=== PATIENT | male | born 1955 | race Caucasian/White ===

== ENCOUNTER 2020-11-20 05:34 | Outpatient (CLI) | payer OTHER ==
[~2020-11-20] VITALS: Ht 177.8 cm; Wt 104.4 kg
[~2020-11-20 05:34] MED LIST: BENACAR; DOXA1TAB2 PO; ESCT10T; FEXO180T84 PO; FLUT9.9S NS; VALS80TA31 PO
[2020-11-21] MEDS ORDERED: METF-397 PO (10:51)
[2020-11-21] MEDS ORDERED: TELM80TA8 PO (10:51)
== END 2020-11-21 13:03 | disposition home or self-care (01) ==
LOC: PREOP 05:34 → EDSTATUS 08:45 → PREOP 11-21 13:03
PROVIDERS: ATTEND Surgery
DX: Z01.818 Encounter for other preprocedural examination (principal)

== ENCOUNTER 2020-11-27 09:43 | Day surgery (SDC) | payer MEDICARE, OTHER ==
--- NOTE | 2020-11-26 09:43 | HISTORY AND PHYSICAL ---
DATE OF SERVICE: PROCEDURE DATE: 11/27/2020. ATTENDING PHYSICIAN: Radha Tracey DO HISTORY OF PRESENT ILLNESS: The patient is a 65-year-old male who was referred over to us in need of a screening colonoscopy. He reports his last colonoscopy was 5 years ago and reports at that time, he did have a hepatic flexure polyp, which was removed and consistent with a tubular adenoma. He was also found to have a stage II external and internal hemorrhoids as well as a mild sigmoid diverticulosis. He reports that since that time, he has done well; however, about 3 weeks ago, he presented to his primary care physician with what he thought was an episode of diverticulitis; however, reports that he did have some blood work performed and reports this was normal. He reports he was not started on any antibiotics and then his pain did improve. He denies any blood in his stool as well as no family history of any colon cancer. He denies any significant issues with any diarrhea or constipation. PAST MEDICAL HISTORY: Hypertension, BPH, type 2 diabetes, degenerative joint disease of the knees, diverticulosis. PAST SURGICAL HISTORY: Bilateral total knee replacement in 2000. Laparoscopic right inguinal hernia repair 2015. Appendectomy in 1968. Left knee ACL repair in 1969. Right knee ACL repair in 1967. Hernia repair as a child in 1955. ALLERGIES: No known drug allergies. MEDICATIONS: Telmisartan 80 mg, doxazosin 1 mg, metformin 500 mg, Flonase. SOCIAL HISTORY: Previous for tobacco smoke at 2 packs per day for 21 years, quit in 1993. Rare for alcohol. FAMILY HISTORY: Mother had diabetes, uterine cancer, myocardial infarction. Father had hypertension, stroke. REVIEW OF SYSTEMS: Well-nourished male in no acute distress. He is not experiencing any shortness of breath or difficulty breathing. No chest pain, palpitations or diaphoresis. No nausea, vomiting or abdominal pain. No diarrhea or constipation. No red blood per rectum. No dark tarry stools. No fever or chills. No recent inadvertent weight loss. All other review of systems are negative. PHYSICAL EXAMINATION: CHEST: Clear. Good breath sounds bilaterally. HEART: Regular, no murmurs. EXTREMITIES: No lower extremity edema. Negative Homans sign. HEENT: No scleral icterus. NECK: No cervical lymphadenopathy. ABDOMEN: Soft, nontender, nondistended. SKIN: Warm, dry and pink. NEUROLOGIC: Awake, alert and oriented x3. ASSESSMENT AND PLAN: A 65-year-old male with a history of colonic polyps, who is in need of a screening colonoscopy. The risks and benefits of the procedure as well as the procedure and home care instructions were explained to the patient. At this time, we will proceed with scheduling the patient for a screening colonoscopy. Job ID: [id number] DocumentID: [id number] Dictated Date: 11/26/2020 09:02:41 Event Lighting Specialist Date: 11/26/2020 09:43:09 Dictated By: TRISTAN EVANS APRN
[~2020-11-27] VITALS: Ht 177.8 cm; Wt 104.4 kg
[2020-11-27] VITALS (13 sets, daily range): BP systolic 121–147; BP diastolic 64–89
[~2020-11-27 09:43] MED LIST changes: +METF-397 PO; +TELM80TA8 PO
[2020-11-27] MEDS ORDERED: NS IV 500 ML 500 ML ONE (09:59)
--- NOTE | 2020-11-27 10:19 | Progress Note-Pre Operative ---
Pre-Operative Progress Note H&P Reviewed The H&P was reviewed, patient examined and no changes noted. Date Seen by Provider: Nov 27, 2020 Time Seen by Provider: 10:00 Date H&P Reviewed: Nov 27, 2020 Time H&P Reviewed: 10:00 Pre-Operative Diagnosis: hx diverticulitis IVANNA DAMIAN MD Nov 27, 2020 10:19
--- NOTE | 2020-11-27 10:19 | Conscious Sedation/ASA ---
Conscious Sedation Pre-Proced Time 10:00 ASA Score 2 For ASA 3 and 4: Consider anesthesia and medical clearance. Also, for patients with a history of failed moderate sedation consider anesthesia. Airway Lungs Heart ASA score ASA 1: a normal healthy patient ASA 2: a patient with a mild systemic disease (mid diabetes, controlled hypertension, obesity ASA 3: a patient with a severe systemic disease that limits activity (angina, COPD, prior Myocardial infarction) ASA 4: a patient with an incapacitating disease that is a constant threat to life (CHF, renal failure) ASA 5: a moribund patient not expected to survive 24 hrs. (ruptured aneurysm) ASA 6: a declared brain- patient whose organs are being harvested. For emergent operations, add the letter E after the classification Mallampati Classification Grade 2 Sedation Plan Analgesia, Amnesia, Plan communicated to team members, Discussed options with patient/fam, Discussed risks with patient/fam The patient is an appropriate candidate to undergo the planned procedure, sedation, and anesthesia. The patient immediately re-assessed prior to indication. IVANNA DAMIAN MD Nov 27, 2020 10:19
--- NOTE | 2020-11-27 10:20 | Discharge Inst-Surgical ---
D/C Lap Instructions-NATI Follow Up Appt in 2 weeks Activity as tolerated High Fiber Diet 25g or more per day Avoid Alcohol, Caffeine, Spicy [place] and Acid foods. Drink 64 fluid oz or more of fluids per day. Symptoms to Report: Fever over 101 degree F, Nausea/Vomiting If any problems/questions: Contact your physician or go to Emergency Room IVANNA DAMIAN MD Nov 27, 2020 10:20
[2020-11-27] MEDS ORDERED: morphine INJ 10 MG/ML 1ML (SYR OR VIAL) IVP PRN ×2 (10:30)
[2020-11-27] MEDS ORDERED: ACETAMINOPHEN 325 MG TABLET PO PRN (10:30)
[2020-11-27] MEDS ORDERED: LIDOCAINE JELLY 2% 6 ML SYRINGE MM PRN (10:30)
[2020-11-27] MEDS ORDERED: fentaNYL INJ 100 MCG/2 ML AMP IVP ONE (10:30)
[2020-11-27] MEDS ORDERED: ONDANSETRON 4 MG/2 ML (SDV) Z0FRAN IVP PRN (10:30)
[2020-11-27] MEDS ORDERED: NS IV 500 ML 500 ML IV PRN (10:30)
[2020-11-27] MEDS ORDERED: MIDAZOLAM 5 MG/5 ML (VERSED) VIAL IV ONE (10:30)
[2020-11-27] MEDS ORDERED: HYDROcodone/APAP 5 MG/325 MG (LORTAB) TAB PO PRN (10:30)
[2020-11-27] MEDS ORDERED: LIDOCAINE JELLY 2% 6 ML SYRINGE TOP ONE (10:30)
[2020-11-27] MEDS ORDERED: fentaNYL INJ 100 MCG/2 ML AMP ONE ×2 (11:26→11:31)
[2020-11-27] MEDS ORDERED: LIDOCAINE JELLY 2% 6 ML SYRINGE ONE (11:26)
[2020-11-27] MEDS ORDERED: MIDAZOLAM 5 MG/5 ML (VERSED) VIAL ONE ×2 (11:27→11:31)
--- NOTE | 2020-11-27 12:25 | Progress Note-Post Operative ---
Post-Operative Progess Note Surgeon (s)/Daylight Driller (s) Surgeon IVANNA DAMIAN MD Daylight Driller: none Pre-Operative Diagnosis hx diverticulitis Post-Operative Diagnosis chronic stage 2 ext and int hemorrhoids, moderate-severe sigmoid diverticulosis, small cecal polyp. Procedure & Operative Findings Date of Procedure 11/27/20 Procedure Performed/Findings colonoscopy with polypectomy with forceps. Anesthesia Type cs Estimated Blood Loss Estimated blood loss (mL): minimal Specimens/Packing Specimens Removed cecal polyp IVANNA DAMIAN MD Nov 27, 2020 12:24
--- NOTE | 2020-11-27 15:58 | OPERATIVE REPORT ---
DATE OF SERVICE: 11/27/2020 ATTENDING PRIMARY CARE PHYSICIAN: Radha Tracey DO PREOPERATIVE DIAGNOSIS: Screening colonoscopy with history of colon polyps as well as a history of diverticulitis. POSTOPERATIVE DIAGNOSES: Chronic stage II external and internal hemorrhoids, [id number] sigmoid diverticulosis with no active inflammation. Small polyp of the cecum, 2 mm in size. PROCEDURES: Colonoscopy with biopsy. SURGEON: Ivanna Damian MD. ANESTHESIA: Conscious sedation. ESTIMATED BLOOD LOSS: Minimal. FINDINGS: Same as postoperative diagnoses. DISPOSITION: The patient tolerated the procedure well. INDICATIONS: The patient is a 65-year-old male in need of a screening colonoscopy. His last colonoscopy was 5 years ago and at that time, he was found to have a polyp at the hepatic flexure, which was removed and found to be consistent with a tubular adenoma. He was also found to have sigmoid diverticulosis. Approximately a month ago, he presented to his physician with left lower quadrant abdominal pain and was diagnosed with diverticulitis and treated with oral antibiotics, which did improve. DESCRIPTION OF PROCEDURE: The patient was brought to the endoscopy suite, laid in the left lateral decubitus position. After adequate IV pain and sedative medications and conscious sedation anesthesia, a digital rectal examination was performed, which revealed chronic stage II external and internal hemorrhoids, not actively edematous nor inflamed and no bleeding. Normal sphincter tone was felt and there were no palpable masses. Prostate gland was palpable and appeared normal. The endoscope was then intubated and anus and rectum gently insufflated. The endoscope was then advanced through the valves of Forrester of the rectum with no polyps or any neoplasms identified. Through the sigmoid colon, a moderate to severe sigmoid diverticulosis identified. There were no mucosal inflammatory changes to indicate any active diverticulitis. The endoscope was then advanced through the remainder of the descending, transverse and ascending colon to the cecum. A small polyp was identified of the cecum approximately 2 mm in size. This was biopsied and destroyed using forceps and electrocautery with visualization of good hemostasis. The endoscope was then slowly withdrawn while taking a second look and suctioning of residual air with no additional findings. The patient tolerated the procedure well. We will recommend a high fiber diet with fiber supplementation on a daily basis and should equal or exceed 30 grams daily as well as significant amounts of water to promote soft stools on a daily basis. We will await the biopsy results of the polyp and if this is a tubular adenoma with no villous component and he is asymptomatic, then he may wait 10 years for his next colonoscopy. Job ID: [id number] DocumentID: [id number] Dictated Date: 11/27/2020 12:18:23 Guest Relations Manager Date: 11/27/2020 15:58:14 Dictated By: IVANNA DAMIAN MD
== END 2020-11-27 13:05 | disposition home or self-care (01) ==
LOC: ENDO 09:43
PROVIDERS: ATTEND Surgery
DX: Z12.11 Encounter for screening for malignant neoplasm of colon (principal); D12.0 Benign neoplasm of cecum; K64.1 Second degree hemorrhoids; K57.30 Diverticulosis of large intestine without perforation or abscess without bleeding; I10 Essential (primary) hypertension; E11.9 Type 2 diabetes mellitus without complications; N40.0 Benign prostatic hyperplasia without lower urinary tract symptoms; Z79.899 Other long term (current) drug therapy; Z87.891 Personal history of nicotine dependence; Z86.010 Personal history of colon polyps; Z80.49 Family history of malignant neoplasm of other genital organs; Z82.3 Family history of stroke
CPT/HCPCS: 88305

== ENCOUNTER → 2021-11-27 | Outpatient (CLI) | payer MEDICARE, OTHER ==
--- NOTE | 2021-11-27 17:47 | Diagnostic Imaging Report ---
PROCEDURE: CT chest and abdomen without contrast. TECHNIQUE: Axial images were obtained from the thoracic inlet through the iliac crest without the administration of intravenous contrast. Auto Exposure Controls were utilized during the CT exam to meet ALARA standards for radiation dose reduction. INDICATION: Recently diagnosed prostate carcinoma. No prior studies are available for comparison. No axillary, hilar or mediastinal lymphadenopathy is seen. There are some calcified lymph nodes in the left hilum and subcarinal region. No pericardial or pleural fluid is identified. No pulmonary infiltrates, nodules or masses are detected. Bony structures are unremarkable. IMPRESSION: Unremarkable noncontrast CT of the chest. CT ABDOMEN: Liver is unremarkable. The gallbladder contains multiple small stones. There is no biliary ductal dilatation. The pancreas and spleen are unremarkable apart from multiple calcified splenic granulomas. Right adrenal gland does contain a low-density nodule measuring 2.2 cm suggestive of an adenoma. Left adrenal gland is unremarkable. There are cortical low-attenuation lesions in both kidneys, largest upper pole left kidney measuring 4.2 cm and most consistent with cysts. There is no calculi or hydronephrosis. Aorta is calcified but nonaneurysmal. No central retroperitoneal or mesenteric lymphadenopathy is identified. Small and large bowel loops are normal caliber. There is no ascites. IMPRESSION: No definite osteolytic or blastic lesions are seen. Dictated by: Dictated on workstation # [id number]
--- NOTE | 2021-11-27 17:50 | Diagnostic Imaging Report ---
INDICATION: Recently diagnosed prostate carcinoma. TECHNIQUE: Patient was administered 26.1 mCi technetium 99m MDP intravenously and whole-body imaging was performed after 3 hour delay. COMPARISON: No prior studies are available for comparison. FINDINGS: There is normal uptake of activity by the axial and appendicular skeleton. There is uptake by both kidneys with excretion into the urinary bladder. There is uptake in the mid feet, bilaterally, consistent with degenerative change. There are postop changes to bilateral knees. Mild uptake in the lumbar spine is noted which is likely degenerative. No abnormal foci of tracer accumulation is seen to suggest osseous metastatic disease. IMPRESSION: No scintigraphic evidence of osseous metastatic disease. Dictated by: Dictated on workstation # [id number]
== END ==
LOC: CARD 12:00
PROVIDERS: ATTEND Urology
DX: C61 Malignant neoplasm of prostate (principal)
CPT/HCPCS: 71250; 74150; 78306; A9503

== ENCOUNTER 2021-12-31 09:58 | Outpatient (RCR) | payer MEDICARE, OTHER | END 2022-01-03 | disposition home or self-care (01) | LOC: ONC 09:58 | PROVIDERS: ATTEND Radiology Radiation Oncology | DX: C61 Malignant neoplasm of prostate (principal) | CPT/HCPCS: 76873; 99204; 99213 ==

== ENCOUNTER 2022-01-14 05:27 | Outpatient (CLI) | payer MEDICARE, OTHER ==
[~2022-01-14] VITALS: Ht 177.8 cm; Wt 102.0 kg
[2022-01-16] MEDS ORDERED: TMSL.4C PO (11:56)
[2022-01-16] MEDS ORDERED: TADA5TAB13 PO (11:56)
[2022-01-16] MEDS ORDERED: ATOR10TA66 PO (11:56)
== END 2022-01-16 12:04 | disposition home or self-care (01) ==
LOC: PREOP 05:27
PROVIDERS: ATTEND Urology
DX: Z01.818 Encounter for other preprocedural examination (principal)

== ENCOUNTER 2022-01-21 06:03 | Day surgery (SDC) | payer MEDICARE, OTHER ==
[2022-01-21] VITALS (11 sets, daily range): BP systolic 81–111; BP diastolic 47–84
[~2022-01-21] VITALS: Ht 177.8 cm; Wt 102.0 kg
[~2022-01-21 06:03] MED LIST changes: +ATOR10TA66 PO; +TADA5TAB13 PO; +TMSL.4C PO
[2022-01-21] MEDS: LACTATED RINGERS 1,000 ML IV PRN ×2 (06:30→08:00)
[2022-01-21] MEDS ORDERED: SEVOFLURANE (ULTANE) 15 ML INHAL SOLN ONE ×2 (07:04→08:23)
[2022-01-21] MEDS ORDERED: LIDOCAINE PF 2% 5 ML (XYLOCAINE) VIAL ONE (07:04)
[2022-01-21] MEDS ORDERED: proPOfol 200 MG/20 ML (DIPRIVAN) VIAL IV ONE (07:04)
[2022-01-21] MEDS ORDERED: fentaNYL INJ 100 MCG/2 ML AMP ONE (07:04)
[2022-01-21] MEDS ORDERED: ONDANSETRON 4 MG/2 ML (SDV) Z0FRAN ONE (07:04)
[2022-01-21] MEDS ORDERED: MIDAZOLAM 2 MG/2 ML (VERSED) VIAL ONE (07:05)
--- NOTE | 2022-01-21 07:08 | Progress Note-Pre Operative ---
Pre-Operative Progress Note H&P Reviewed The H&P was reviewed, patient examined and no changes noted. Date Seen by Provider: January 21, 2022 Time Seen by Provider: 07:08 Date H&P Reviewed: January 21, 2022 Time H&P Reviewed: 07:08 Pre-Operative Diagnosis: CA PROSTATE WALE SERRANO MD January 21, 2022 07:08
--- NOTE | 2022-01-21 07:14 | Progress Note-Post Operative ---
Post-Operative Progess Note Surgeon (s)/Chef Kitchen Manager (s) Surgeon EFRAIN SANCHEZ MD, WALE SERRANO MD Chef Kitchen Manager: NONE Pre-Operative Diagnosis CA PROSTATE Post-Operative Diagnosis SAME Procedure & Operative Findings Date of Procedure 01/21/22 Procedure Performed/Findings BRACHYTHERAPY, CYSTOGRAM, SPACE OAR Anesthesia Type GENERAL Estimated Blood Loss Estimated blood loss (mL): NEGLIGIBLE Specimens/Packing Specimens Removed NONE Packing: NONE WALE SERRANO MD January 21, 2022 07:14
--- NOTE | 2022-01-21 07:16 | Discharge Inst-Urology ---
Discharge Inst-Urology Reconcile Patient Problems Problems Reviewed?: Yes Final Diagnosis CA PROSTATE Patient Instructions/Follow Up Plan/Assessment/Instructions Discharge with ortiz and leg bag day time and large bag night time with instructions Come to office Wednesday 9am to DC [place], rest till then Please make appointment to been seen in office in 4 weeks. Increase oral fluids for 48 hours and then as needed. Diet as tolerated. If questions or concerns contact your physician Or seek help at emergency department. WALE SERRANO MD January 21, 2022 07:16
[2022-01-21] MEDS ORDERED: GLYCOPYRROLATE 0.2 MG/ML (ROBINUL) 2 ML VIAL ONE (08:02)
[2022-01-21] MEDS ORDERED: BACITRACIN OINTMENT 28 GM TUBE ONE (08:03)
[2022-01-21] MEDS ORDERED: PHENYLEPHRINE 100 MCG/ML 10 ML (ANESTHESIA) SYR ONE (08:33)
[2022-01-21] MEDS ORDERED: KETO10TA PO (08:40)
[2022-01-21] MEDS ORDERED: PHEN-640 PO (08:40)
[2022-01-21] MEDS ORDERED: CIPR-225 PO (08:40)
--- NOTE | 2022-01-21 08:40 | Anesthesia-General Post-Op ---
General Patient Condition Mental Status/LOC: Same as Preop Cardiovascular: Satisfactory Nausea/Vomiting: Absent Respiratory: Satisfactory Pain: Controlled Complications: Absent Post Op Complications Complications None Follow Up Care/Instructions Patient Instructions None needed. Anesthesia/Patient Condition Patient Condition Patient is doing well, no complaints, stable vital signs, no apparent adverse anesthesia problems. No complications reported per nursing. LILLIAN WILLETT CRNA January 21, 2022 08:40
[2022-01-21] MEDS ORDERED: ONDANSETRON 4 MG/2 ML (SDV) Z0FRAN IVP PRN (08:45)
[2022-01-21] MEDS ORDERED: morphine INJ 10 MG/ML 1ML (SYR OR VIAL) IVP ONE (08:45)
[2022-01-21] MEDS ORDERED: MEPERIDINE (DEMEROL) INJ 50 MG/ML IVP ONE (08:45)
--- NOTE | 2022-01-21 11:07 | Diagnostic Imaging Report ---
FLUOROSCOPY UP TO 1 HOUR INDICATION: Brachytherapy of the prostate with cystogram COMPARISON: None available. FINDINGS AND IMPRESSION: Single spot image is submitted showing Devine catheter inflated within the balloon with contrast present. Brachytherapy markers are present in the prostate. 17 seconds fluoroscopy times utilized. Please see procedure report. Dictated by: Dictated on workstation # [id number]
== END 2022-01-21 10:35 | disposition home or self-care (01) ==
LOC: SDC 06:03
PROVIDERS: ATTEND Urology
DX: C61 Malignant neoplasm of prostate (principal); E66.9 Obesity, unspecified; Z87.891 Personal history of nicotine dependence; Z68.32 Body mass index [BMI] 32.0-32.9, adult
CPT/HCPCS: 55874; 55876; 76000; 76965; 77290; 77318; 77332; 77370; 77470; 77778; 82947; 87081; C1715 ×2; C1889; C2643

== ENCOUNTER 2022-02-18 10:03 | Outpatient (RCR) | payer MEDICARE, OTHER ==
[~2022-02-18 10:03] MED LIST changes: +CIPR-225 PO; +KETO10TA PO; +PHEN-640 PO
== END 2022-03-05 | disposition home or self-care (01) ==
LOC: ONC 10:03
PROVIDERS: ATTEND Radiology Radiation Oncology
DX: Z51.0 Encounter for antineoplastic radiation therapy (principal); C61 Malignant neoplasm of prostate
CPT/HCPCS: 77290

== ENCOUNTER → 2022-03-05 | Outpatient (CLI) | payer MEDICARE, OTHER | LOC: ONC 11:00 | PROVIDERS: ATTEND Radiology Radiation Oncology | DX: C61 Malignant neoplasm of prostate (principal) | CPT/HCPCS: 77295 ==

== ENCOUNTER 2022-04-03 08:43 | Outpatient (RCR) | payer MEDICARE, OTHER | END 2022-04-05 | disposition home or self-care (01) | LOC: ONC 08:43 | PROVIDERS: ATTEND Radiology Radiation Oncology | DX: Z51.0 Encounter for antineoplastic radiation therapy (principal); C61 Malignant neoplasm of prostate | CPT/HCPCS: 77300; 77301; 77334; 77336; 77338; 77385; 77470 ==

== ENCOUNTER 2022-04-17 08:41 | Outpatient (RCR) | payer MEDICARE, OTHER | END 2022-05-06 | disposition home or self-care (01) | LOC: ONC 08:41 | PROVIDERS: ATTEND Radiology Radiation Oncology | DX: Z51.0 Encounter for antineoplastic radiation therapy (principal); C61 Malignant neoplasm of prostate | CPT/HCPCS: 77336; 77385 ==

== ENCOUNTER 2022-05-28 09:59 | Outpatient (RCR) | payer MEDICARE, OTHER | END 2022-06-05 | disposition home or self-care (01) | LOC: ONC 09:59 | PROVIDERS: ATTEND Radiology Radiation Oncology | DX: Z51.0 Encounter for antineoplastic radiation therapy (principal); C61 Malignant neoplasm of prostate; Z12.5 Encounter for screening for malignant neoplasm of prostate | CPT/HCPCS: G0103; G0463; 36415; 84153; 99213 ==

== ENCOUNTER → 2022-12-07 | Outpatient (CLI) | payer MEDICARE, OTHER ==
--- NOTE | 2022-12-07 11:15 | Diagnostic Imaging Report ---
PROCEDURE: US Renal Bilateral. TECHNIQUE: Multiple real-time grayscale images were obtained over the kidneys in various projections bilaterally. INDICATION: History of prostate cancer. COMPARISON: None. FINDINGS: Both kidneys are normal in size and echogenicity. Both kidneys measure approximately 10.5 cm in length The cortical thickness and the cortical medullary differentiation is well maintained. Anechoic benign-appearing cysts are identified bilaterally. Cyst on the right measures 2.6 x 2.1 x 2.8 cm and cyst on the left measures 3.9 x 4.2 x 4.2 cm. No suspicious solid masses are seen. There is no evidence of hydronephrosis or calculus. Limited views of the pelvis demonstrate mildly distended urinary bladder. Note is made of echogenic debris within the lumen of the urinary bladder. There is no ascites. IMPRESSION: 1. Bilateral benign-appearing renal cysts. Otherwise, unremarkable sonographic appearance of both kidneys. 2. Echogenic debris is present within urinary bladder. Findings can be seen with underlying cystitis. Cortical correlation is advised. Dictated by: Dictated on workstation # [id number]
== END ==
LOC: RAD 08:29
PROVIDERS: ATTEND Specialist
DX: N28.1 Cyst of kidney, acquired (principal); N40.1 Benign prostatic hyperplasia with lower urinary tract symptoms; Z85.46 Personal history of malignant neoplasm of prostate
CPT/HCPCS: 76770

== ENCOUNTER 2022-12-24 20:32 | Outpatient (CLI) | payer MEDICARE, OTHER | END 2022-12-25 06:28 | disposition home or self-care (01) | LOC: SLEEP 20:32 | PROVIDERS: ATTEND Nurse Practitioner Family | DX: G47.33 Obstructive sleep apnea (adult) (pediatric) (principal); G47.10 Hypersomnia, unspecified; G47.34 Idiopathic sleep related nonobstructive alveolar hypoventilation | CPT/HCPCS: 95810 ==

== ENCOUNTER → 2023-02-10 | Outpatient (CLI) | payer MEDICARE, OTHER ==
[~2023-02-10] MED LIST changes: +RT-ALBUTEROL SULF 2.5 MG/3 ML PRE-MIX VIAL INH ONE
== END ==
LOC: RT 12:33
PROVIDERS: ATTEND Nurse Practitioner Family
DX: R05.3 Chronic cough (principal)
CPT/HCPCS: 94060; 94726; 94729

== ENCOUNTER 2023-02-25 20:33 | Outpatient (CLI) | payer MEDICARE, OTHER ==
[~2023-02-25 20:33] MED LIST changes: -RT-ALBUTEROL SULF 2.5 MG/3 ML PRE-MIX VIAL INH ONE
== END 2023-02-26 06:15 | disposition home or self-care (01) ==
LOC: SLEEP 20:33
PROVIDERS: ATTEND Nurse Practitioner Family
DX: G47.33 Obstructive sleep apnea (adult) (pediatric) (principal)
CPT/HCPCS: 95811